=== PATIENT | female | born 1935 | race Caucasian/White ===

== ENCOUNTER → 2020-05-09 | Outpatient (CLI) | payer OTHER | LOC: SJCVCIMAG 10:26 | PROVIDERS: ATTEND Internal Medicine Cardiovascular Disease | DX: I65.23 Occlusion and stenosis of bilateral carotid arteries (principal); I49.9 Cardiac arrhythmia, unspecified; I35.0 Nonrheumatic aortic (valve) stenosis; E78.00 Pure hypercholesterolemia, unspecified; I10 Essential (primary) hypertension; E11.9 Type 2 diabetes mellitus without complications; Z79.84 Long term (current) use of oral hypoglycemic drugs; Z79.899 Other long term (current) drug therapy; Z82.49 Family history of ischemic heart disease and other diseases of the circulatory system ==

== ENCOUNTER → 2020-09-12 | Outpatient (CLI) | payer OTHER | LOC: SJCVCIMAG 11:59 | PROVIDERS: ATTEND Internal Medicine Cardiovascular Disease | DX: I08.3 Combined rheumatic disorders of mitral, aortic and tricuspid valves (principal); I11.9 Hypertensive heart disease without heart failure; E11.9 Type 2 diabetes mellitus without complications; I48.0 Paroxysmal atrial fibrillation; E78.00 Pure hypercholesterolemia, unspecified; D68.59 Other primary thrombophilia; I65.23 Occlusion and stenosis of bilateral carotid arteries; Z79.899 Other long term (current) drug therapy ==

== ENCOUNTER 2021-05-09 11:56 | Emergency (ER) | payer OTHER ==
[~2021-05-09] VITALS: Ht 172.7 cm; Wt 56.7 kg
--- NOTE | ~2021-05-09 | EMS ---
[address] [address] EMS Patient Care Report Name: AMEE MATT Room #: DEP JAIMEE Price#: [id number] Admission: 05/09/21 Attend Phys: Discharge: 05/09/21 Date of : 31 Report #: [id number] THIS REPORT FOR: //name// Report Transmitted: 05/09/2021 13:48 EMS Care Summary [facility] MED-ACT Incident [id number] @ 05/09/2021 11:21 Incident Location [address] [place] [address] Patient MAEE MATT Female, 85 Years 1935 Patient Address [address] [place] [address] Patient History Hypertension (HTN),Cardiac Condition - Other,Atrial Fibrillation, Patient Allergies Sulfa, Patient Medications Amlodipine, Metformin, Levothyroxine, Atorvastatin, Losartan, Chief Complaint "I'm foggy in my head." Disposition Transported No Lights/[place] Dis[place] Reason Unconscious/Fainting Transported To [facility] Narrative EMS arrived to pt sitting in her chair with family. Pt said she woke this morning and she was feeling dizzy and "foggy" in her head. Pt denied chest pain/SOB/nausea/vomit/diarrhea/fever/medication changes. Pt said she has been taking her medications like she is supposed to and she still can be [address] [address] EMS Patient Care Report Name: AMEE MATT Room #: DEP [facility].#: [id number] Admission: 05/09/21 Attend Phys: Discharge: 05/09/21 Date of : 31 Report #: [id number] hypertensive at times in the over 200s systolic. Pt said she is supposed to have an aortic valve replacement but it's been postponed because of covid-19. Pt said she is scheduled next week to meet with her high value associate to have the surgery. Pt was able to get up on her own and sit on walk, secured. Pt denied increase or decrease of dizziness with standing or walking. Pt said it stays the same no matter what she is doing. Family said this has happened to her before and feel it's related to her heart valve issue. Pt to MICU. No change in complaint en route. Biocom- no orders req/rec Pt to room 3, verbal report to RN Initial Vitals @11:38P: 86,BP: 207/94,Glucose: 133,SpO2: 97, @11:29P: 92,BP: 214/95,SpO2: 97, @11:30P: 92,SpO2: 97,[place] Suspected: false @11:27P: 95,R: 18,BP: 223/108,Pain: 0/10,GCS: 15,Temp: 98F,SpO2: 98,Revised Trauma: 12, Assessments @11:29MENTAL:Person Oriented,Time Oriented,Place Oriented,Event Oriented,SKIN:HEENT:Head/Face: No Abnormalities,Neck/Airway: No Abnormalities,LUNG SOUNDS:ABDOMEN:PELVIS//GI:EXTREMITIES:PULSE:NEURO:No Abnormalities, Impression Dizziness Procedures @11:30ALS AssessmentResponse: UnchangedSucceeded@11:42Surgical Mask on PatientResponse: Unchanged@11:3012-Lead ECGResponse: UnchangedSucceeded Timeline 11:20,Call Received 11:20,Psap Call 11:21,Dispatched 11:22,En Route 11:25,On Scene 11:26,At Patient 11:27,BP: 223/108 M,PULSE: 95,RR: 18 R,SPO2: 98 Ox,ETCO2: ,BG: ,PAIN: 0,GCS: 15, 11:29,BP: 214/95 M,PULSE: 92,RR: R,SPO2: 97 Ox,ETCO2: ,BG: ,PAIN: ,GCS: , 11:30,ALS Assessment,Response: UnchangedSucceeded, 11:30,12-Lead ECG,Response: UnchangedSucceeded, 11:30,BP: / M,PULSE: 92,RR: R,SPO2: 97 Ox,ETCO2: ,BG: ,PAIN: ,GCS: , 11:36,Depart Scene 11:38,BP: 207/94 M,PULSE: 86,RR: R,SPO2: 97 Ox,ETCO2: ,B,PAIN: ,GCS: , 11:42,Surgical Mask on Patient,Response: Unchanged [facility] [address] [place] [address] EMS Patient Care Report Name: VERNELLALICEGerry Ruiz Room #: RUBENS Price#: [id number] Admission: 05/09/21 Attend Phys: Discharge: 05/09/21 Date of : 31 Report #: [id number] 11:47,At Destination 12:08,Call Closed Disclaimer v1.1 Copyright 2020 [employer] This EMS Care Summary contains data elements from the applicable legal record (which may be displayed differently). It is designed to provide pertinent information for the following purposes: continuity of care, clinical quality, and state data reporting. The complete legal record is available to ED staff and administrators of the receiving hospital in [employer]'s Patient Tracker. All data is provided "as is."
[2021-05-09 12:53] LABS: ABSOLUTE NEUTROPHILS 4.6 thou/uL (1.4-8.2); BASOPHILS 0.7 % (0.0-2.0); EOSINOPHILS 1.7 % (0.0-3.0); HEMOGLOBIN 12.3 gm/dL (12.0-15.0); MCH 30.6 pg (26.0-34.0); MCHC 33.2 g/dL (28.0-37.0); MCV 92.1 fL (80.0-100.0); MONOCYTES 8.2 % (1.0-8.0); PLATELET COUNT 147 thou/uL (150-400); POLYS 59.4 % (36.0-66.0); RBC 4.01 mil/uL (4.20-5.00); RDW 14.1 % (10.5-14.5); WBC 7.7 thou/uL (4.0-11.0)
[2021-05-09 12:54] LABS: ANION GAP 12 mmol/L (7-16); BUN 26 mg/dL (7-18); CALCIUM 9.1 mg/dL (8.5-10.1); CHLORIDE 102 mmol/L (98-107); CO2 26 mmol/L (21-32); CREATININE 1.1 mg/dL (0.6-1.0); GLUCOSE 131 mg/dL (74-106); POTASSIUM 4.3 mmol/L (3.5-5.1); SODIUM 140 mmol/L (136-145)
--- NOTE | 2021-05-09 13:02 | EKG ---
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
[2021-05-09 13:04] LABS: ALBUMIN 4.2 g/dL (3.4-5.0); SGOT 26 U/L (15-37); SGPT 32 U/L (30-65); TOTAL BILIRUBIN 0.6 mg/dL (0.2-1.0); TOTAL PROTEIN 8.1 g/dL (6.4-8.2); TROPONIN-I <0.06 ng/mL (<0.06)
[2021-05-09] MEDS ORDERED: METFORMIN HCL500 M3 PO (14:00)
[2021-05-09] MEDS ORDERED: LEVO-T100 MCG PO (14:00)
[2021-05-09] MEDS ORDERED: LIPITOR 20 MG T20 M1 PO (14:01)
[2021-05-09] MEDS ORDERED: NORVASC 2.5 MG2.5 M1 PO (14:01)
[2021-05-09] MEDS ORDERED: BYSTOLIC10 MG PO (14:02)
[2021-05-09] MEDS ORDERED: XARELTO15 MG PO (14:02)
[2021-05-09] MEDS ORDERED: CELEXA 10 MG TA10 M1 PO (14:03)
[2021-05-09 14:39] LABS: URINE BILIRUBIN NEGATIVE (Negative); URINE BLOOD TRACE (Negative); URINE CLARITY CLEAR; URINE COLOR YELLOW; URINE GLUCOSE-RANDOM* NEGATIVE (Negative); URINE KETONES NEGATIVE (Negative); URINE LEUKOCYTES-REFLEX TRACE (Negative); URINE NITRITE-REFLEX NEGATIVE (Negative); URINE PROTEIN (DIPSTICK) NEGATIVE (Negative); URINE SPECIFIC GRAVITY <= 1.005 (1.005-1.035); URINE UROBILINOGEN 0.2 E.U./dl (0.2-1.0)
[2021-05-09] MEDS ORDERED: CEPHALEXIN500 MG PO (16:15)
[2021-05-09 16:49] VITALS: BP 194/92
== END 2021-05-09 16:49 | disposition home or self-care (01) ==
LOC: ER 11:56
PROVIDERS: Emergency Medicine
DX: N39.0 Urinary tract infection, site not specified (principal); R42 Dizziness and giddiness; I48.91 Unspecified atrial fibrillation; Z88.2 Allergy status to sulfonamides

== ENCOUNTER → 2021-05-15 | Outpatient (CLI) | payer OTHER ==
[~2021-05-15] MED LIST: BYSTOLIC10 MG PO; CELEXA 10 MG TA10 M1 PO; CEPHALEXIN500 MG PO; LEVO-T100 MCG PO; LIPITOR 20 MG T20 M1 PO; METFORMIN HCL500 M3 PO; NORVASC 2.5 MG2.5 M1 PO; XARELTO15 MG PO
== END ==
LOC: SJCVCIMAG 10:57
PROVIDERS: ATTEND Internal Medicine Cardiovascular Disease
DX: I65.23 Occlusion and stenosis of bilateral carotid arteries (principal); I35.0 Nonrheumatic aortic (valve) stenosis; I10 Essential (primary) hypertension; E78.00 Pure hypercholesterolemia, unspecified; I48.0 Paroxysmal atrial fibrillation; E11.9 Type 2 diabetes mellitus without complications; E03.9 Hypothyroidism, unspecified; Z88.2 Allergy status to sulfonamides; Z79.899 Other long term (current) drug therapy; Z82.49 Family history of ischemic heart disease and other diseases of the circulatory system

== ENCOUNTER → 2021-08-27 | Outpatient (CLI) | payer OTHER | LOC: SJCVCIMAG 07:59 | PROVIDERS: ATTEND Internal Medicine Cardiovascular Disease | DX: I65.23 Occlusion and stenosis of bilateral carotid arteries (principal); I35.0 Nonrheumatic aortic (valve) stenosis; E11.9 Type 2 diabetes mellitus without complications; I48.91 Unspecified atrial fibrillation; D68.59 Other primary thrombophilia; E78.00 Pure hypercholesterolemia, unspecified; I10 Essential (primary) hypertension; Z79.899 Other long term (current) drug therapy; Z88.2 Allergy status to sulfonamides ==

== ENCOUNTER → 2021-10-08 | Outpatient (CLI) | payer OTHER | LOC: RAD 12:56 | PROVIDERS: ATTEND Family Medicine | DX: Z12.31 Encounter for screening mammogram for malignant neoplasm of breast (principal); N64.89 Other specified disorders of breast ==